=== PATIENT | male | born 1980 | race American Indian/Alaskan Native ===

== ENCOUNTER 2017-04-09 11:27 | Emergency (ER) | payer SELFPAY ==
[2017-04-09 12:29] VITALS: BP 130/87
--- NOTE | 2017-04-09 13:19 | Emergency Department Report ---
HPI - General Chief Complaint: Upper Respiratory Infection - HPI HPI: 37-year-old -[place] male comes to the emergency room stating rotation I have a sinus infection." Patient reports that he has been treating his sinuses with Claritin but is getting worse. Patient reports that he's been having sneezing facial nasal pressure, headache he had a fever and chills last week. He denies any cough denies any dental pain denies any rhinorrhea. Currently has no past medical history currently takes no medications.. ED Past Medical Hx - Past Medical History Previous Medical History?: No - Surgical History Additional Surgical History: eye surgery at 3 y.o. - Social History Smoking Status: Never Smoker Substance Use Type: None - Medications Home Medications: Home Medications Medication Instructions Recorded Confirmed Last Taken Type Cyclobenzaprine [Flexeril 10mg] 10 mg PO TID PRN #15 tablet 06/24/14 Unknown Rx oxyCODONE /ACETAMINOPHEN [Percocet 1 tab PO Q6HR PRN #15 tablet 06/24/14 Unknown Rx 5/325] Cephalexin [Keflex] 500 mg PO BID #20 capsule 04/09/17 Unknown Rx Fluticasone [Flonase] 1 spray NS QDAY #1 bottle 04/09/17 Unknown Rx ED Review of Systems ROS: Stated complaint: SINUS INFECTION Other details as noted in HPI Constitutional: chills, fever Eyes: denies: eye pain, eye discharge, vision change ENT: congestion (nasal congestion) Respiratory: denies: cough, shortness of breath, wheezing Cardiovascular: denies: chest pain, palpitations Endocrine: no symptoms reported Gastrointestinal: denies: abdominal pain, nausea, diarrhea Genitourinary: denies: urgency, dysuria Musculoskeletal: denies: back pain, joint swelling, arthralgia Skin: denies: rash, lesions Neurological: denies: headache, weakness, paresthesias Psychiatric: denies: anxiety, depression Hematological/Lymphatic: denies: easy bleeding, easy bruising Physical Exam - Physical Exam Vital Signs: Vital Signs 04/09/17 12:25 Temperature 98.6 F Pulse Rate 78 Respiratory 18 Rate Blood Pressure 130/87 O2 Sat by Pulse 99 Oximetry Physical Exam: GENERAL: Alert and oriented x3, no apparent distress, Normal Gait, atraumatic. HEAD: Head is normocephalic and a-traumatic. EYES: Extra ocular muscles are intact. Pupils are equal, round, and reactive to light and accommodation. EARS: symetrical, atraumatic, non tender, ear canal clear and moderate cerumen, tympanic membrance non inflamed. gross auditory nml bilaterally. NOSE: Nose symetrical, Nontender,Nares appeared normal. Maxillary tenderness to percussion MOUTH:Mouth is well hydrated and without lesions. Tonsils nonerythematous or swollen, Uvula midline, Tongue not elevated. Mucous membranes are moist. Posterior pharynx clear, no exudate or lesions. Patent airways. NECK: Supple. Non edematous, No carotid bruits. No lymphadenopathy or thyromegaly. LUNGS: Symetrical with respiration, No wheezing, no rales or crackles, CTAB. HEART: S1, S2 present, regular rate and rhythm without murmur, no rubs, no gallops. NEUROLOGIC: No focal Deficit, Cranial nerves II through XII are grossly intact. No loss of sensation, No facial droop, Negative rhomberg. PSYCHIATRIC: Mood is congruent with affect, denies suicidal or homicidal ideations. SKIN: Warm and dry, No lesions, No ulceration or induration present ED Course Vital Signs 04/09/17 12:25 Temperature 98.6 F Pulse Rate 78 Respiratory 18 Rate Blood Pressure 130/87 O2 Sat by Pulse 99 Oximetry ED Medical Decision Making - Medical Decision Making Patient has been evaluated by this provider fast track. Discussed the patient a replacement antibiotic nasal spray and for him to follow up with his primary care provider if no relief or gets worse. Patient verbalized understanding. Critical care attestation.: If time is entered above; I have spent that time in minutes in the direct care of this critically ill patient, excluding procedure time. ED Disposition Clinical Impression: Sinusitis, acute Qualifiers: Sinusitis location: maxillary Recurrence: not specified as recurrent Qualified Code(s): J01.00 - Acute maxillary sinusitis, unspecified Disposition: - TO HOME OR SELFCARE Is pt being admited?: No Does the pt Need Aspirin: No Condition: Stable Instructions: Sinusitis (ED) Additional Instructions: Take antibiotics and nasal spray as prescribed. His symptoms persist or gets worse follow up with her primary care provider. Prescriptions: Cephalexin [Keflex] 500 mg PO BID #20 capsule Fluticasone [Flonase] 1 spray NS QDAY #1 bottle Referrals: PRIMARY CARE, [Primary Care Provider] - 3-5 Days Forms: Accompanied Note, Work/School Release Form(ED)
== END 2017-04-09 14:22 | disposition home or self-care (01) ==
LOC: ED 11:27
DX: J01.00 Acute maxillary sinusitis, unspecified (principal)
CPT/HCPCS: 99282

== ENCOUNTER 2018-08-21 17:44 | Inpatient (IN) | payer SELFPAY ==
[2018-08-21] MEDS ORDERED: KETAMINE HCL IV ONE (17:52)
[2018-08-21] MEDS ORDERED: KETALAR IV ONE (17:55)
[2018-08-21] MEDS ORDERED: ZEMURON IV ONE (17:56)
[2018-08-21] MEDS ORDERED: NACL 0.9% 1000 ML 2,000 ML IV ONE (18:06)
[2018-08-21] MEDS ORDERED: ATIVAN IM PRN (18:06)
[2018-08-21] MEDS ORDERED: VASELINE LIP THERAPY TP PRN (18:07)
[2018-08-21] MEDS ORDERED: ARTIFICIAL TEARS OPHTH OINT OU PRN (18:07)
[2018-08-21] MEDS ORDERED: SUBLIMAZE IV PRN (18:07)
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
[2018-08-21] MEDS ORDERED: NACL 0.9% 1000 ML IV ONE (18:21)
[2018-08-21] MEDS ORDERED: ZOVIRAX 800 MG in NACL 0.9% 100 ML IV STA (18:21)
[2018-08-21] MEDS ORDERED: DECADRON IV ONE (18:22)
[2018-08-21] MEDS: DIPRIVAN 10 MG/ML 1,000 MG/100 ML BOTTLE IV SCH (18:50)
[2018-08-21] MEDS: fentaNYL DRIP Premix 2,000 MCG/100 ML BAG IV SCH (18:50)
[2018-08-21 18:54] LABS: Hematocrit 49.7 % (35.5-45.6); Hemoglobin 16.4 gm/dl (11.8-15.2); Mean Corpuscular HGB Conc 33 % (32-34); Mean Corpuscular Volume 92 fl (84-94); Red Blood Count 5.41 M/mm3 (3.65-5.03); Red Cell Distribution Width 14.3 % (13.2-15.2)
[2018-08-21 18:55] LABS: Platelet Count 277 K/mm3 (140-440)
[2018-08-21 18:58] LABS: Albumin 4.2 g/dL (3.9-5); Calcium 9.9 mg/dL (8.4-10.2)
[2018-08-21] MEDS ORDERED: VANCOMYCIN PHARMACY TO DOSE IV SCH (19:00)
[2018-08-21 19:02] LABS: INR 1.12 (0.87-1.13)
[2018-08-21 19:13] LABS: Bacteria,Urine 1+ /HPF (Negative); Bilirubin,Urine NEG (Negative); Blood,Urine NEG (Negative); Color,Urine Amber (Yellow); Mucus,Urine FEW /HPF
[2018-08-21 19:19] LABS: Amphetamine Screen,Urine PRESUMPTIVE NEGATIVE; Benzodiazepines Screen,Urine PRESUMPTIVE NEGATIVE; Methadone Screen,Urine PRESUMPTIVE NEGATIVE; Opiate Screen,Urine PRESUMPTIVE NEGATIVE
[2018-08-21 19:31] LABS: Cannabinoid Screen,Urine PRESUMPTIVE POSITIVE; Cocaine Screen,Urine PRESUMPTIVE POSITIVE
[2018-08-21] MEDS ORDERED: XYLOCAINE 2%/EPI 1:100,000 INFILTRATI ONE (19:34)
--- NOTE | 2018-08-21 19:36 | XRay Report ---
PROCEDURE: XR CHEST 1V AP TECHNIQUE: AP portable view of the chest HISTORY: Endotracheal tube placement COMPARISONS: None FINDINGS: There is an endotracheal tube in place that appears adequately positioned. There is an NG tube in marlyn ce and courses below the diaphragm and below the lower margin of the film. The cardiomediastinal silhouette appears normal. The lungs are clear. The bones and soft tissues are unremarkable. IMPRESSION: Endotracheal tube appears adequately positioned. No evidence of acute cardiopulmonary disease. This document is electronically signed by Deborah Dalal MD., August 21 2018 07:34:27 PM ET
[2018-08-21] MEDS ORDERED: TYLENOL PR ONE (19:37)
[2018-08-21 19:43] LABS: Partial Thromboplastin Time TNR Sec. (24.2-36.6)
[2018-08-21] MEDS ORDERED: ROCEPHIN/NS 2 GM/100 ML 2 GM/100 ML BAG IV SCH (20:00)
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
[2018-08-21] MEDS ORDERED: ROCEPHIN IM ONE (20:14)
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
[2018-08-21 20:49] LABS: BUN/Creatinine Ratio 10; Blood Urea Nitrogen 14 mg/dL (9-20); Calcium 8.2 mg/dL (8.4-10.2); Hemolysis Index 59
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
[2018-08-21] MEDS ORDERED: VANCOMYCIN 1,750 MG in NACL 0.9% 500 ML 500 ML IV ONE (21:00)
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
[2018-08-21 22:11] LABS: Glucose,CSF 135 mg/dL
[2018-08-21] MEDS ORDERED: DIPRIVAN 10 MG/ML 1,000 MG/100 ML BOTTLE IV ONE (22:51)
[2018-08-21 22:52] LABS: Total Cells Counted 50 /mm3
[2018-08-21 22:53] LABS: Appearance,CSF Clear; Basophils CSF 0 %; Red Blood Cell,CSF 63 /mm3 (0-0); White Blood Cell,CSF 11 /mm3 (1-10)
[2018-08-22] MEDS ORDERED: fentaNYL DRIP Premix 2,000 MCG/100 ML BAG IV ONE ×2 (01:16→08:35)
[2018-08-22] MEDS: fentaNYL DRIP Premix 2,000 MCG/100 ML BAG IV SCH ×2 (01:22→08:36)
[2018-08-22] MEDS: DIPRIVAN 10 MG/ML 1,000 MG/100 ML BOTTLE IV SCH (01:22)
[2018-08-22] MEDS ORDERED: TYLENOL PO PRN (01:56)
[2018-08-22] MEDS ORDERED: TYLENOL PR PRN (01:56)
[2018-08-22] MEDS ORDERED: ZOFRAN IV PRN (01:56)
[2018-08-22] MEDS ORDERED: SODIUM CHLORIDE FLUSH SYRINGE 10 ML IV PRN (01:56)
[2018-08-22] MEDS ORDERED: NACL 0.9% 1000 ML 1,000 ML IV SCH (02:00)
[2018-08-22] MEDS: NACL 0.9% 1000 ML 1,000 ML IV SCH ×3 (04:07→21:39)
[2018-08-22] MEDS ORDERED: NACL 0.9% 1000 ML 1,000 ML ONE (04:07)
[2018-08-22 05:15] LABS: Hemoglobin 13.5 gm/dl (11.8-15.2); Mean Corpuscular HGB Conc 34 % (32-34); Mean Corpuscular Volume 90 fl (84-94); Platelet Count 216 K/mm3 (140-440); Red Blood Count 4.45 M/mm3 (3.65-5.03)
[2018-08-22 05:26] LABS: BUN/Creatinine Ratio 7; Blood Urea Nitrogen 10 mg/dL (9-20); Calcium 8.5 mg/dL (8.4-10.2); Hemolysis Index 13
[2018-08-22 06:22] LABS: Basophils % (Manual) 0 % (0.0-1.8); Eosinophils % (Manual) 0 % (0.0-4.3); Total Cells Counted 100
[2018-08-22 06:23] LABS: Anisocytosis 1+; Tear Drop Cells Rare
[2018-08-22 06:24] LABS: Platelet Estimate Consistent w Auto; Poikilocytosis Few
[2018-08-22] MEDS ORDERED: ROCEPHIN/NS 2 GM/100 ML 2 GM/100 ML BAG IV SCH (10:00)
[2018-08-22] MEDS ORDERED: PEPCID IV SCH (10:00)
[2018-08-22] MEDS ORDERED: ZEMURON IV ONE (10:04)
[2018-08-22] MEDS: LOVENOX SUB-Q SCH (10:43)
[2018-08-22] MEDS: SODIUM CHLORIDE FLUSH SYRINGE 10 ML IV SCH ×2 (10:44→21:48)
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
--- NOTE | 2018-08-22 13:30 | Consultation ---
History of Present Illness Consult date: 08/22/18 Requesting physician: RANI LUCAS Reason for consult: other (Agitation) History of present illness: 38 y/o male, brought in by police with extreme agitation. PER ED physician patient required intubation for safety. This am patient is awake and alert, off all sedation. ABG normal and CXR is normal. No family at bedside. Patient was febrile to 102 on admission. Started on broad spec abx therapy. He was tapped in the ED by ED physician (spinal) Past History Past Medical History: No medical history Past Surgical History: No surgical history Social history: no significant social history Family history: no significant family history Medications and Allergies Allergies Allergy/AdvReac Type Severity Reaction Status Date / Time No Known Allergies Allergy Verified 04/09/17 12:25 Home Medications Medication Instructions Recorded Confirmed Last Taken Type Cyclobenzaprine [Flexeril 10mg] 10 mg PO TID PRN #15 tablet 06/24/14 Unknown Rx oxyCODONE /ACETAMINOPHEN [Percocet 1 tab PO Q6HR PRN #15 tablet 06/24/14 Unknown Rx 5/325] Cephalexin [Keflex] 500 mg PO BID #20 capsule 04/09/17 Unknown Rx Fluticasone [Flonase] 1 spray NS QDAY #1 bottle 04/09/17 Unknown Rx Active Meds: Active Medications Acetaminophen (Tylenol) 650 mg PO Q4H PRN PRN Reason: Pain MILD(1-3)/Fever >100.5/GAO Acetaminophen (Tylenol) 650 mg PA Q4H PRN PRN Reason: Pain MILD(1-3)/Fever >100.5/GAO Enoxaparin Sodium (Lovenox) 40 mg SUB-Q QDAY [facility] Last Admin: 08/22/18 10:43 Dose: 40 mg Documented by: Famotidine (Pepcid) 20 mg IV BID [facility] Last Admin: 08/22/18 10:44 Dose: 20 mg Documented by: Fentanyl (Sublimaze) 50 mcg IV Q10MIN PRN PRN Reason: ANALGESIA Hydrophilic Ointment (Vaseline Lip Therapy) 1 applic TP Q2HR PRN PRN Reason: Dry Lips Fentanyl Citrate (Fentanyl Drip Premix) 2,000 mcg in 100 mls @ 4.082 mls/hr IV TITR [facility]; Protocol Last Titration: 08/22/18 11:40 Dose: 0 mcg/kg/hr, 0 mls/hr Documented by: Propofol (Diprivan 10 Mg/Ml) 1,000 mg in 100 mls @ 2.449 mls/hr IV TITR [facility]; Protocol Last Titration: 08/22/18 11:30 Dose: 0 mcg/kg/min, 0 mls/hr Documented by: Sodium Chloride (Nacl 0.9% 1000 Ml) 1,000 mls @ 150 mls/hr IV DIRECT [facility] Last Admin: 08/22/18 10:44 Dose: 150 mls/hr Documented by: Piperacillin Sod/Tazobactam Sod (Zosyn/Ns 4.5gm/100ml) 4.5 gm in 100 mls @ 200 mls/hr IV Q8HR [facility]; Protocol Lorazepam (Ativan) 2 mg IM Q4HR PRN PRN Reason: Agitation Multi-Ingred Cream/Lotion/Oil/Oint (Artificial Tears Ophth Oint) 1 applic OU Q4HR PRN PRN Reason: Dry Eye(s) Ondansetron HCl (Zofran) 4 mg IV Q8H PRN PRN Reason: Nausea And Vomiting Sodium Chloride (Sodium Chloride Flush Syringe 10 Ml) 10 ml IV BID [facility] Last Admin: 08/22/18 10:44 Dose: 10 ml Documented by: Sodium Chloride (Sodium Chloride Flush Syringe 10 Ml) 10 ml IV PRN PRN PRN Reason: LINE FLUSH Review of Systems ROS unobtainable: due to endotracheal tube Physical Examination Vital signs: Vital Signs Pulse Resp BP 193 H 12 182/91 08/21/18 17:56 08/21/18 17:56 08/21/18 17:56 General appearance: no acute distress, alert Eyes: non-icteric ENT: oropharynx moist, other (orally intubated) Neck: supple Effort: normal Ascultation: Bilateral: clear Percussion: Bilateral: not dull Cardiovascular: regular rate and rhythm Gastrointestinal: normoactive bowel sounds, soft, non-tender Integumentary: normal Extremities: no edema, pink and warm, pulses normal Musculoskeletal: no deformities normal mental status, non-focal exam Results - Laboratory Findings CBC and BMP: 08/22/18 04:59 08/22/18 04:59 ABG POC ABG pH 7.423 (7.35-7.45) 08/22/18 05:42 POC ABG pCO2 35.0 (35-45) 08/22/18 05:42 POC ABG pO2 250 (80-105) H 08/22/18 05:42 POC ABG HCO3 22.9 (22-26 mml/L) 08/22/18 05:42 POC ABG Total CO2 24 (23-27mmol/L) 08/22/18 05:42 POC ABG O2 Sat 100 08/22/18 05:42 PT/INR, D-dimer PT 15.1 Sec. (12.2-14.9) H 08/21/18 18:13 INR 1.12 (0.87-1.13) 08/21/18 18:13 Abnormal lab findings: Abnormal Labs 08/21/18 08/21/18 08/21/18 10:23 18:13 18:13 RBC 5.41 H Hgb 16.4 H Hct 49.7 H Seg Neuts % (Manual) Lymphocytes % (Manual) Seg Neutrophils # Man Lymphocytes # (Manual) PT 15.1 H POC ABG pH POC ABG pCO2 POC ABG pO2 Chloride Carbon Dioxide Creatinine Glucose Lactic Acid Calcium Total Creatine Kinase Total Protein Ur Specific [place] 1.032 H Salicylates Acetaminophen 08/21/18 08/21/18 08/21/18 18:13 18:13 18:13 RBC Hgb Hct Seg Neuts % (Manual) Lymphocytes % (Manual) Seg Neutrophils # Man Lymphocytes # (Manual) PT POC ABG pH POC ABG pCO2 POC ABG pO2 Chloride 97.2 L Carbon Dioxide 13 L Creatinine 1.7 H Glucose 262 H Lactic Acid Calcium Total Creatine Kinase 643 H Total Protein 8.6 H Ur Specific [place] Salicylates < 0.3 L Acetaminophen < 5.0 L 08/21/18 08/21/18 08/21/18 18:31 18:38 20:17 RBC Hgb Hct Seg Neuts % (Manual) Lymphocytes % (Manual) Seg Neutrophils # Man Lymphocytes # (Manual) PT POC ABG pH 7.162 L POC ABG pCO2 49.9 H POC ABG pO2 209 H Chloride Carbon Dioxide 21 L D Creatinine Glucose 162 H Lactic Acid 9.30 H* Calcium 8.2 L D Total Creatine Kinase 686 H Total Protein Ur Specific [place] Salicylates Acetaminophen 08/22/18 08/22/18 08/22/18 04:59 04:59 05:42 RBC Hgb Hct Seg Neuts % (Manual) 91.0 H Lymphocytes % (Manual) 4.0 L Seg Neutrophils # Man 8.1 H Lymphocytes # (Manual) 0.4 L PT POC ABG pH POC ABG pCO2 POC ABG pO2 250 H Chloride 112.1 H Carbon Dioxide 21 L Creatinine Glucose 129 H Lactic Acid Calcium Total Creatine Kinase Total Protein Ur Specific [place] Salicylates Acetaminophen - Diagnostic Findings Chest x-ray: image reviewed Assessment and Plan 38 y/o male admitted with acute respiratory failure, iatrogenic secondary to medication for mood control 1. Extubate 2. Follow up cultures 3. CXR is normal, does not have pneumonitis. Does not need abx for this. 4. Will transfer out of unit as long as patient passes bedside swallow. CCT 31 minutes.
[2018-08-22] MEDS ORDERED: ZOSYN/NS 4.5GM/100ML 4.5 GM/100 ML VIAL IV SCH (14:00)
--- NOTE | 2018-08-22 14:03 | Consultation ---
History of Present Illness - Reason for Consult Consult date: 08/22/18 Fever post intubation Requesting physician: ABHI ABBOTT - History of Present Illness The patient is a 38-year-old male with no significant past medical history was brought to the emergency room by police with extreme agitation. Apparently, the patient required significant sedative medications for by intubation. He did spike a fever of 102F. He was started on broad-spectrum antibiotic therapy. Infectious diseases was consulted for additional recommendations. Due to concern for possible meningitis, patient underwent a lumbar puncture which showed 11 WBCs, normal protein and glucose. His urine tox screen was positive for cocaine and marijuana. He was extubated, sitting up in ICU, denies any complaints. He states he was doing drugs, snorting cocaine and became combative. Denies any IVDU. Review of Systems: General: no fevers,chills or rigors HEENT: no new visual disturbance Respiratory: No cough, sputum, hemoptysis or shortness of breath Cardiovascular: No chest pain, syncope Gastrointestinal: No nausea, vomiting or diarrhea Genitourinary: No dysuria or hematuria Musculoskeletal: No new or worsening neck pain or back pain Neurologic: No headaches, seizures Hematologic: No easy bruising or bleeding Endocrine: No night sweats or acute weight loss Skin: negative for rash, jaundice Psychiatric: No suicidal or homicidal ideation Past History Past Medical History: No medical history Past Surgical History: No surgical history Social history: no significant social history Family history: no significant family history Medications and Allergies Allergies Allergy/AdvReac Type Severity Reaction Status Date / Time No Known Allergies Allergy Verified 04/09/17 12:25 Home Medications Medication Instructions Recorded Confirmed Last Taken Type Cyclobenzaprine [Flexeril 10mg] 10 mg PO TID PRN #15 tablet 06/24/14 Unknown Rx oxyCODONE /ACETAMINOPHEN [Percocet 1 tab PO Q6HR PRN #15 tablet 06/24/14 Unknown Rx 5/325] Cephalexin [Keflex] 500 mg PO BID #20 capsule 04/09/17 Unknown Rx Fluticasone [Flonase] 1 spray NS QDAY #1 bottle 04/09/17 Unknown Rx Active Meds: Active Medications Acetaminophen (Tylenol) 650 mg PO Q4H PRN PRN Reason: Pain MILD(1-3)/Fever >100.5/GAO Acetaminophen (Tylenol) 650 mg ND Q4H PRN PRN Reason: Pain MILD(1-3)/Fever >100.5/GAO Enoxaparin Sodium (Lovenox) 40 mg SUB-Q QDAY [facility] Last Admin: 08/22/18 10:43 Dose: 40 mg Documented by: Famotidine (Pepcid) 20 mg IV BID [facility] Last Admin: 08/22/18 10:44 Dose: 20 mg Documented by: Fentanyl (Sublimaze) 50 mcg IV Q10MIN PRN PRN Reason: ANALGESIA Hydrophilic Ointment (Vaseline Lip Therapy) 1 applic TP Q2HR PRN PRN Reason: Dry Lips Fentanyl Citrate (Fentanyl Drip Premix) 2,000 mcg in 100 mls @ 4.082 mls/hr IV TITR [facility]; Protocol Last Titration: 08/22/18 11:40 Dose: 0 mcg/kg/hr, 0 mls/hr Documented by: Propofol (Diprivan 10 Mg/Ml) 1,000 mg in 100 mls @ 2.449 mls/hr IV TITR [facility]; Protocol Last Titration: 08/22/18 11:30 Dose: 0 mcg/kg/min, 0 mls/hr Documented by: Sodium Chloride (Nacl 0.9% 1000 Ml) 1,000 mls @ 150 mls/hr IV DIRECT [facility] Last Admin: 08/22/18 10:44 Dose: 150 mls/hr Documented by: Piperacillin Sod/Tazobactam Sod (Zosyn/Ns 4.5gm/100ml) 4.5 gm in 100 mls @ 200 mls/hr IV Q8HR [facility]; Protocol Lorazepam (Ativan) 2 mg IM Q4HR PRN PRN Reason: Agitation Multi-Ingred Cream/Lotion/Oil/Oint (Artificial Tears Ophth Oint) 1 applic OU Q4HR PRN PRN Reason: Dry Eye(s) Ondansetron HCl (Zofran) 4 mg IV Q8H PRN PRN Reason: Nausea And Vomiting Sodium Chloride (Sodium Chloride Flush Syringe 10 Ml) 10 ml IV BID [facility] Last Admin: 08/22/18 10:44 Dose: 10 ml Documented by: Sodium Chloride (Sodium Chloride Flush Syringe 10 Ml) 10 ml IV PRN PRN PRN Reason: LINE FLUSH Physical Examination - Physical Exam Narrative exam: Physical Exam: Constitutional: Alert, cooperative. No acute distress Head, Ears, Nose: Normocephalic, atraumatic. External ears, nose normal Eyes: Conjunctivae/corneas clear. No icterus. No ptosis. Neck: Supple, no meningeal signs Oral: dentition fair, no thrush Cardiovascular: S1, S2 normal. Respiratory: Good air entry, clear to auscultation bilaterally GI: Soft, non-tender; bowel sounds normal. No peritoneal signs Musculoskeletal: No pedal edema, no cyanosis. Skin: No rash or abscess Hem/Lymphatic: No palpable cervical or supraclavicular nodes. No lymphangitis Psych: Mood ok. Affect normal Neurological: Awake, alert, oriented. No gross abnormality - Constitutional Vitals: Vital Signs Temp Pulse Resp BP Pulse Ox 99.8 F H 105 H 18 125/66 96 08/22/18 12:00 08/22/18 13:21 08/22/18 13:21 08/22/18 13:21 08/22/18 13:21 Temperature -Last 24 Hours Temperature 99.8 F Temperature 99.9 F Temperature 100.0 F Temperature 102.2 F Results - Labs CBC & Chem 7: 08/22/18 04:59 08/22/18 04:59 Labs: Abnormal lab results 08/21/18 08/21/18 08/21/18 Range/Units 10:23 18:13 18:13 RBC 5.41 H (3.65-5.03) M/mm3 Hgb 16.4 H (11.8-15.2) gm/dl Hct 49.7 H (35.5-45.6) % Seg Neuts % (Manual) (40.0-70.0) % Lymphocytes % (Manual) (13.4-35.0) % Seg Neutrophils # Man (1.8-7.7) K/mm3 Lymphocytes # (Manual) (1.2-5.4) K/mm3 PT 15.1 H (12.2-14.9) Sec. POC ABG pH (7.35-7.45) POC ABG pCO2 (35-45) POC ABG pO2 (80-105) Chloride (98-107) mmol/L Carbon Dioxide (22-30) mmol/L Creatinine (0.8-1.5) mg/dL Glucose (75-100) mg/dL Lactic Acid (0.7-2.0) mmol/L Calcium (8.4-10.2) mg/dL Total Creatine Kinase (55-170) units/L Total Protein (6.3-8.2) g/dL Ur Specific [place] 1.032 H (1.003-1.030) Salicylates (2.8-20.0) mg/dL Acetaminophen (10.0-30.0) ug/mL 08/21/18 08/21/18 08/21/18 Range/Units 18:13 18:13 18:13 RBC (3.65-5.03) M/mm3 Hgb (11.8-15.2) gm/dl Hct (35.5-45.6) % Seg Neuts % (Manual) (40.0-70.0) % Lymphocytes % (Manual) (13.4-35.0) % Seg Neutrophils # Man (1.8-7.7) K/mm3 Lymphocytes # (Manual) (1.2-5.4) K/mm3 PT (12.2-14.9) Sec. POC ABG pH (7.35-7.45) POC ABG pCO2 (35-45) POC ABG pO2 (80-105) Chloride 97.2 L (98-107) mmol/L Carbon Dioxide 13 L (22-30) mmol/L Creatinine 1.7 H (0.8-1.5) mg/dL Glucose 262 H (75-100) mg/dL Lactic Acid (0.7-2.0) mmol/L Calcium (8.4-10.2) mg/dL Total Creatine Kinase 643 H (55-170) units/L Total Protein 8.6 H (6.3-8.2) g/dL Ur Specific [place] (1.003-1.030) Salicylates < 0.3 L (2.8-20.0) mg/dL Acetaminophen < 5.0 L (10.0-30.0) ug/mL 08/21/18 08/21/18 08/21/18 Range/Units 18:31 18:38 20:17 RBC (3.65-5.03) M/mm3 Hgb (11.8-15.2) gm/dl Hct (35.5-45.6) % Seg Neuts % (Manual) (40.0-70.0) % Lymphocytes % (Manual) (13.4-35.0) % Seg Neutrophils # Man (1.8-7.7) K/mm3 Lymphocytes # (Manual) (1.2-5.4) K/mm3 PT (12.2-14.9) Sec. POC ABG pH 7.162 L (7.35-7.45) POC ABG pCO2 49.9 H (35-45) POC ABG pO2 209 H (80-105) Chloride (98-107) mmol/L Carbon Dioxide 21 L D (22-30) mmol/L Creatinine (0.8-1.5) mg/dL Glucose 162 H (75-100) mg/dL Lactic Acid 9.30 H* (0.7-2.0) mmol/L Calcium 8.2 L D (8.4-10.2) mg/dL Total Creatine Kinase 686 H (55-170) units/L Total Protein (6.3-8.2) g/dL Ur Specific [place] (1.003-1.030) Salicylates (2.8-20.0) mg/dL Acetaminophen (10.0-30.0) ug/mL 08/22/18 08/22/18 08/22/18 Range/Units 04:59 04:59 05:42 RBC (3.65-5.03) M/mm3 Hgb (11.8-15.2) gm/dl Hct (35.5-45.6) % Seg Neuts % (Manual) 91.0 H (40.0-70.0) % Lymphocytes % (Manual) 4.0 L (13.4-35.0) % Seg Neutrophils # Man 8.1 H (1.8-7.7) K/mm3 Lymphocytes # (Manual) 0.4 L (1.2-5.4) K/mm3 PT (12.2-14.9) Sec. POC ABG pH (7.35-7.45) POC ABG pCO2 (35-45) POC ABG pO2 250 H (80-105) Chloride 112.1 H (98-107) mmol/L Carbon Dioxide 21 L (22-30) mmol/L Creatinine (0.8-1.5) mg/dL Glucose 129 H (75-100) mg/dL Lactic Acid (0.7-2.0) mmol/L Calcium (8.4-10.2) mg/dL Total Creatine Kinase (55-170) units/L Total Protein (6.3-8.2) g/dL Ur Specific [place] (1.003-1.030) Salicylates (2.8-20.0) mg/dL Acetaminophen (10.0-30.0) ug/mL - Imaging and Cardiology CT scan - abdomen: report reviewed, image reviewed (CT abdomen and pelvis without contrast was unremarkable for acute pathology.) CT scan - chest: report reviewed, image reviewed (CT chest without contrast showed no pneumonia) CT Scan - head: report reviewed, image reviewed (CT cervical spine showed no fracture. CT head showed no acute intracranial abnormality except mild chronic sinusitis.) Assessment and Plan Cultures: 08/21/2018 blood culture: In process 08/21/2018 CSF culture: Crypto Ag negative. culture in process A/P: 38-year-old male with polysubstance abuse admitted with delirium/agitation status post intubation now with fevers. 1) Fever: Etiology unclear. No evidence of infectious process on extensive imaging. No leukocytosis. LP not concerning for acute bacterial meningitis. UA not suggestive of infection. Fevers could be related to medications v/s drugs. Patient is stable from hemodynamic standpoint and asymptomatic, would stop abx and monitor. 2) Polysubstance abuse: recommended HIV, Hep B and C screen but patient refusing, states he had them tested a few years ago. Recs: d/c abx: zosyn and vancomycin monitor fever and WBC f/u blood cultures D/W Dr. Abbott. Isidro Nava MD [facility] C: [phone] O: [phone] F: [phone]
[2018-08-22] MEDS ORDERED: VANCOMYCIN 1,250 MG in NACL 0.9% 250ML 250 ML IV SCH (16:00)
[2018-08-23 08:33] LABS: Hematocrit 38.1 % (35.5-45.6); Hemoglobin 12.8 gm/dl (11.8-15.2); Mean Corpuscular HGB Conc 34 % (32-34); Mean Corpuscular Volume 91 fl (84-94); Platelet Count 150 K/mm3 (140-440); Red Cell Distribution Width 14.1 % (13.2-15.2)
[2018-08-23 08:48] LABS: BUN/Creatinine Ratio 5; Blood Urea Nitrogen 5 mg/dL (9-20); Calcium 8.2 mg/dL (8.4-10.2); Hemolysis Index 3
[2018-08-23] MEDS ORDERED: PROTONIX PO SCH (10:00)
--- NOTE | 2018-08-23 10:43 | Progress Note ---
Assessment and Plan Cultures: 08/21/2018 blood culture: In process 08/21/2018 CSF culture: Crypto Ag negative. culture in process 08/21/2018 urine: no growth A/P: 38-year-old male with polysubstance abuse admitted with delirium/agitation status post intubation now with fevers. 1) Fever: Resolved. Etiology unclear. No evidence of infectious process on extensive imaging. No leukocytosis. LP not concerning for acute bacterial meningitis. UA not suggestive of infection. Fevers could be related to medicati ons v/s drugs. Patient is stable from hemodynamic standpoint and asymptomatic, would stop abx and monitor. 2) Polysubstance abuse: recommended HIV, Hep B and C screen but patient refusing, states he had them tested a few years ago. Recs: monitor fever and WBC f/u blood cultures ID is signing off [facility] M: [id number] O:[phone] Subjective Date of service: 08/23/18 Interval history: Patient seen and examined. No SOB, Rash or generalized pain. No fevers. Objective - Exam Narrative Exam: Constitutional: Alert, cooperative. No acute distress Head, Ears, Nose: Normocephalic, atraumatic. External ears, nose normal Eyes: Conjunctivae/corneas clear. No icterus. No ptosis. Neck: Supple, no meningeal signs Oral: dentition fair, no thrush Cardiovascular: S1, S2 normal. Respiratory: Good air entry, clear to auscultation bilaterally GI: Soft, non-tender; bowel sounds normal. No peritoneal signs Musculoskeletal: No pedal edema, no cyanosis. Skin: No rash or abscess Hem/Lymphatic: No palpable cervical or supraclavicular nodes. No lymphangitis Psych: Mood ok. Affect normal Neurological: Awake, alert, oriented. No gross abnormality - Constitutional Vitals: Vital Signs Temp Pulse Resp BP Pulse Ox 97.8 F 61 20 101/57 93 08/23/18 05:53 08/23/18 05:53 08/23/18 05:53 08/23/18 05:53 08/23/18 05:53 Temperature -Last 24 Hours Temperature 97.8 F Temperature 98.2 F Temperature 98.3 F Temperature 99.8 F - Labs CBC & Chem 7: 08/23/18 07:28 08/23/18 07:28 Labs: Abnormal lab results 08/23/18 Range/Units 07:28 Chloride 109.5 H (98-107) mmol/L BUN 5 L (9-20) mg/dL Calcium 8.2 L (8.4-10.2) mg/dL
[2018-08-23] MEDS: SODIUM CHLORIDE FLUSH SYRINGE 10 ML IV SCH (12:58)
[2018-08-23] MEDS: LOVENOX SUB-Q SCH (12:58)
--- NOTE | 2018-08-23 14:53 | Discharge Summary ---
Providers - Providers Date of Admission: 08/21/18 21:55 Date of discharge: 08/23/18 Attending physician: ABHI JENNINGS 08/21/18 18:06 Consult to Mental Health [CONS] Urgent Reason For Exam: psych Place consult to:: trademark affixer azure principal solution specialist Notified:: awaiting call back Consult to Physician [CONS] Urgent Comment: Dr. Dwyer spoke with Dr. Torre @ [phone] Consulting Provider: PRISCILA TORRE Physician Instructions: Reason For Exam: resp failure ams ett placement 08/21/18 18:07 Consult to Dietitian/Nutrition [CONS] Routine Physician Instructions: Reason For Exam: Reason for Consult: Evaluate nutritional intake 08/22/18 06:55 Consult to Physician [CONS] Routine Comment: Kesha @ notified @ 08:06- [facility] Consulting Provider: MERCEDES MALONE Physician Instructions: Reason For Exam: meningitis 08/22/18 12:02 Consult to Physician [CONS] Routine Comment: Consulting Provider: MERCEDES MALONE Physician Instructions: Reason For Exam: Fever post Intubation, ?needing abx Primary care physician: HYDROLOGIC ENGINEER Hospitalization Condition: Stable Hospital course: Patient is a 38 yo man without a clear history of past medical problems who presented to [facility] ED with AMS. He was in the back of the police car, he was agitated, given sedatives, however he was still combative. In the emergency room, he remained combative and was subsequently intubated. He was found to have a fever post Intubation. His Urine drug screen was positive for cocaine and marijuana. LP was done, high glucose and low protein, unlikely bacterial. He has been afebrile off abx. He is back to his baseline and asymptomatic. He denies SI, HI. I will rescind [id number] and discharge home Acute respiratory failure: MV removed yesterday and his stable, not on O2 Acute metabolic encephalopathy, ruled out meningitis: stop abx Febrile illness after intubation, ruled out aspiration pneumonitis/pneumonia, consulted ID, Poly Substance abuse; counseling done DVT/GI ppx full code Disposition: - TO HOME OR SELFCARE Time spent for discharge: 32 minutes Core Measure Documentation - Palliative Care Palliative Care/ Comfort Measures: Not Applicable - Core Measures Any of the following diagnoses?: none - VTE Discharge Requirements Deep Vein Thrombosis/Pulmonary Embolism Present on Admission: No Has pt received <5 days of overlap therapy or INR<2.0: No Anticoagulant overlap therapy prescribed at discharge: No Contraindication No Overlap Therapy order at DC: Not Indicated Exam - Physical Exam Narrative exam: GEN: intubated and sedated HEENT: NCAT, EOMI, PERRL, OP Clear NECK: supple, no adenopathy, no thyromegaly, no JVD CVS/HEART: RRR, normal S1S2, pulses present bilaterally CHEST/LUNGS: CTA B, Symmetrical chest expansion, good air entry bilaterally GI/Abdomen: soft, NTND, good bowel sounds, no guarding or rebound /Bladder: no suprapubic tenderness, no CVA or paraspinal tenderness EXT/Skin: sedated MSK: sedated Neuro: sedated Psych: sedated - Constitutional Vitals: Temp Pulse Resp BP Pulse Ox 99.2 F 72 16 120/71 100 08/23/18 12:21 08/23/18 12:21 08/23/18 12:21 08/23/18 12:21 08/23/18 12:21 Plan Activity: other (no strenous activity unless cleared by PCP) Diet: regular Special Instructions: smoking cessation Follow up with: PRIMARY CAREMD [Primary Care Provider] - 3-5 Days
[2018-08-23 18:11] VITALS: BP 162/99
== END 2018-08-23 18:15 | disposition home or self-care (01) | DRG 208 ==
LOC: ED 17:44 → CC1 21:55 → 3A 08-22 20:05
PROVIDERS: ADMIT Internal Medicine; ATTEND Internal Medicine
PROC: 5A1935Z Respiratory Ventilation, Less than 24 Consecutive Hours (ICD-10-PCS; principal; 2018-08-21)
PROC: 0BH17EZ Insertion of Endotracheal Airway into Trachea, Via Natural or Artificial Opening (ICD-10-PCS; 2018-08-21)
PROC: 009U3ZZ Drainage of Spinal Canal, Percutaneous Approach (ICD-10-PCS; 2018-08-21)
PROC: 00JU3ZZ Inspection of Spinal Canal, Percutaneous Approach (ICD-10-PCS; 2018-08-21)
PROC: 4A033R1 Measurement of Arterial Saturation, Peripheral, Percutaneous Approach (ICD-10-PCS; 2018-08-21)
DX: J96.00 Acute respiratory failure, unspecified whether with hypoxia or hypercapnia (principal); G93.41 Metabolic encephalopathy; R65.10 Systemic inflammatory response syndrome (SIRS) of non-infectious origin without acute organ dysfunction; G93.40 Encephalopathy, unspecified; F14.10 Cocaine abuse, uncomplicated; F12.10 Cannabis abuse, uncomplicated; T50.995A Adverse effect of other drugs, medicaments and biological substances, initial encounter; Y92.098 Other place in other non-institutional residence as the place of occurrence of the external cause; Z71.51 Drug abuse counseling and surveillance of drug abuser
CPT/HCPCS: 36415; 36600; 70450; 71045; 71250; 72125; 72170; 74176; 80048; 80053; 80307; 80320; 81001; 82140; 82550; 82803; 82947; 83690; 84160; 85007; 85025; 85027; 85610; 86403; 86592; 87040; 87086; 87116; 89051; 93005; 93010; 94002; 94003; G0378; G0480; J0133; J0696; J1100; J1650; J2543; J2704; J3010; J3370; J7030; J7040; J7050